=== PATIENT | male | born 1930 | race Caucasian/White ===

== ENCOUNTER 2017-03-04 05:09 | Day surgery (SDC) | payer MEDICARE, OTHER ==
[~2017-03-04 05:09] MED LIST: ACTOS45 PO; ALTACE10 MG PO; AMARYL4 PO; ASAB PO; ASACOL HD800 MG PO; ASACOL PO; CENTRUM SILVER PO; CRESTOR10 PO; FERROUS SULF325 M1 PO; FLOMAX4 PO; GLUCPH PO; JANUVIA100 MG PO; LANTUS SC; LIBRAX PO; MAGOX4 PO; MULTI-VIT HP PO; NORCO1 TA1 PO; ULTRAM50 PO; VESICARE10 MG PO
== END 2017-03-04 10:31 | disposition home or self-care (01) ==
LOC: SDC 05:09
PROVIDERS: Orthopaedic Surgery
PROC: B01B1ZZ Fluoroscopy of Spinal Cord using Low Osmolar Contrast (ICD-10-PCS; 2017-03-04)
PROC: 3E0S33Z Introduction of Anti-inflammatory into Epidural Space, Percutaneous Approach (ICD-10-PCS; principal; 2017-03-04 07:00)
DX: M54.5 Low back pain (principal); Z79.82 Long term (current) use of aspirin; Z79.4 Long term (current) use of insulin; Z79.899 Other long term (current) drug therapy
CPT/HCPCS: 82962; J1040; J2250; J3010; Q9967